=== PATIENT | male | born 1995 | race Two or more races ===

== ENCOUNTER 2020-01-01 02:02 | Emergency (ER) | payer SELFPAY ==
[~2020-01-01] VITALS: Ht 170.2 cm; Wt 81.7 kg
[2020-01-01 02:06] VITALS: BP 125/72
[2020-01-01] MEDS ORDERED: ONDANSETRON ODT 8 MG ONE (02:24)
--- NOTE | 2020-01-01 02:26 | NUR ---
PT ASSESSED IN TRIAGE BY DR. ANTHONY. PT ALSO MEDICATED IN TRIAGE FOR NAUSEA.
[2020-01-01] MEDS ORDERED: ONDANSETRON ODT 4 MG PO ONE (02:30)
[2020-01-01 02:58] LABS: BASOPHILS # (AUTO) 0.01 x10^3/uL (0-0.1); BASOPHILS % (AUTO) 0 % (0-1); EOSINOPHILS # (AUTO) 0.03 x10^3/uL (0-0.4); EOSINOPHILS % (AUTO) 0 % (1-7); LYMPHOCYTES # (AUTO) 0.53 x10^3/uL (1-3.4); LYMPHOCYTES % (AUTO) 3 % (22-44); MD NO; MEAN CORPUSCULAR HEMOGLOBIN 31.1 pg (27.5-34.5); MEAN CORPUSCULAR HGB CONC 33.9 g/dL (33.2-36.2); MONOCYTES # (AUTO) 0.38 x10^3/uL (0.2-0.8); MONOCYTES % (AUTO) 3 % (2-9); NEUTROPHILS # (AUTO) 14.62 x10^3/uL (1.8-6.8); NEUTROPHILS % (AUTO) 94 % (42-75); PLATELET COUNT 236 x10^3/uL (130-400); RED BLOOD COUNT 4.95 x10^6/uL (4.38-5.82); RED CELL DISTRIBUTION WIDTH 13.7 % (9.4-14.8)
[2020-01-01 03:09] LABS: ALANINE AMINOTRANSFERASE 55 U/L (12-78); ALBUMIN 4.2 g/dL (3.4-5.0); ANION GAP 4 mmol/L (5-15); CALCIUM 8.8 mg/dL (8.5-10.1); CHLORIDE 108 mmol/L (98-107); CREATININE 1.22 mg/dL (0.7-1.3)
[2020-01-01 03:11] LABS: ALKALINE PHOSPHATASE 70 U/L (45-117); BILIRUBIN,TOTAL 1.1 mg/dL (0.2-1.0); TOTAL PROTEIN 7.8 g/dL (6.4-8.2)
[2020-01-01] MEDS ORDERED: PROMETHAZINE 25 MG/ML, 1ML ONE (03:12)
[2020-01-01] MEDS ORDERED: DICYCLOMINE 10 MG/ML, 2ML ONE (03:13)
[2020-01-01] MEDS ORDERED: DICYCLOMINE 10 MG/ML, 2ML IM ONE (03:30)
[2020-01-01] MEDS ORDERED: PROMETHAZINE 25 MG/ML, 1ML IM ONE (03:30)
== END 2020-01-01 04:26 | disposition home or self-care (01) ==
LOC: ED 04:15
DX: K52.29 Other allergic and dietetic gastroenteritis and colitis (principal); R10.84 Generalized abdominal pain; R11.2 Nausea with vomiting, unspecified
CPT/HCPCS: 36415; 80053; 83690; 85025; 96372; 99284; J0500; J2550; Q0162

== ENCOUNTER 2020-10-23 21:35 | Emergency (ER) | payer SELFPAY ==
[~2020-10-23] VITALS: Ht 170.2 cm; Wt 84.5 kg
--- NOTE | 2020-10-23 22:08 | NUR ---
PT STATE THAT HAD URINE INFECTION WANTS TO GET IT CHECKED OUT HAS URINE SAMPLE.
[2020-10-23 22:40] LABS: MICROSCOPIC NOT IND
[2020-10-23 23:12] VITALS: BP 113/58
--- NOTE | 2020-10-23 23:14 | NUR ---
Patient given discharge instructions and they have confirmed that they understand the instructions. Patient ambulatory with steady gait. No question at time of discharge.
== END 2020-10-23 23:16 | disposition home or self-care (01) ==
LOC: ED 23:10
DX: B37.42 Candidal balanitis (principal)
CPT/HCPCS: 81003; 87491; 87591; 99283

== ENCOUNTER 2021-03-28 18:27 | Emergency (ER) | payer SELFPAY ==
[~2021-03-28] VITALS: Ht 172.7 cm; Wt 87.6 kg
[2021-03-28 18:32] VITALS: BP 125/77
[2021-03-28] MEDS ORDERED: CEFTRIAXONE 1,000 MG IM ONE (19:00)
--- NOTE | 2021-03-28 23:05 | NUR ---
Pt not in lobby when called for room
--- NOTE | 2021-03-28 23:20 | NUR ---
Pt not in lobby when called for room x2.
--- NOTE | 2021-03-28 23:39 | NUR ---
Pt not in lobby when called for room x3, pt lwbs.
== END 2021-03-28 23:41 | disposition left against medical advice (07) ==
LOC: ED 19:00
DX: A54.9 Gonococcal infection, unspecified (principal); A74.9 Chlamydial infection, unspecified
CPT/HCPCS: 87491; 87591; 99283